=== PATIENT | female | born 1980 | race Caucasian/White ===

== ENCOUNTER 2017-05-23 11:18 | Emergency (ER) | payer OTHER ==
[2017-05-23 11:23] VITALS: BP 128/74; PULSE 69; RESP 16; TEMP 97.9; O2SAT 99
--- NOTE | 2017-05-23 11:58 | EDPHY ---
H & P Smoking Status: Former smoker HPI/ROS: Chief complaint: Sore throat History of present illness: This is a 36-year-old female who presents to the emergency department for evaluation of a sore throat. Patient reports the onset of symptoms over the last few days. She denies precipitating factors. She denies other associated signs or symptoms including no fevers, no swelling of the throat, no difficulty opening closing the mouth, swallowing, talking or breathing, no cough, no body aches, no rash. (Abdi Aceves) Physical Exam: General Appearance: Alert, nontoxic. Eyes: Pupils equal and round no injection. ENT: Tympanic membranes, external auditory canals, external ears and surrounding soft tissue including over the mastoids are unremarkable. Nasopharynx is not injected. There is no rhinorrhea. Oropharynx is mildly injected. There is no edema. There is no exudate. There is no asymmetry. The uvula is midline. No elevation of the tongue. There is no hoarseness, no drooling, no trismus, no stridor. Respiratory: Chest is non tender, lungs are clear to auscultation. Cardiac: regular rate and rhythm Musculoskeletal: Neck is supple and non tender. Extremities have full range of motion and are non tender. Skin: No rashes or lesions. (Abdi Aceves) Constitutional: Initial Vital Signs Temperature (C) 36.6 C 05/23/17 11:20 Heart Rate 69 05/23/17 11:20 Respiratory Rate 16 05/23/17 11:20 Blood Pressure 128/74 H 05/23/17 11:20 O2 Sat (%) 99 05/23/17 11:20 O2 Delivery Mode Room Air Allergies/Adverse Reactions: acetaminophen [From Percocet] Allergy (Verified 05/23/17 11:19) oxycodone HCl [From Percocet] Allergy (Verified 05/23/17 11:19) Home Medications: Medication Instructions Recorded NK [No Known Home Meds] 05/23/17 MDM/Departure - MDM ED Course/Re-evaluation: Patient seen under the supervision of my secondary supervising physician Dr. Marquita Mercado. Patient presents to the emergency department for sore throat. She is nontoxic. Strep swab is negative. No evidence of complications such as abscess formation or meningitis. Antibiotics not indicated. She is discharged home. Home care is discussed. Return precautions are given. Patient voiced understanding and agreement with plan. (Abdi Aceves) The patient was evaluated and managed by the physician executive administrative assistant. I have reviewed this chart and I agree with the findings and plan of care as documented , as indicated by my signature. I am the secondary supervising physician. ( Marquita Mercado) - Depart Disposition: Home, Routine, Self-Care Clinical Impression: Acute pharyngitis Qualifiers: Pharyngitis/tonsillitis etiology: unspecified etiology Qualified Code(s): J02.9 - Acute pharyngitis, unspecified Condition: Good Instructions: Pharyngitis (ED) Additional Instructions: Follow-up with a primary care doctor this week for recheck If symptoms worsen or new symptoms develop return to the emergency room for recheck Referrals: MASTER MELENDEZ [Primary Care Provider] - As per Instructions
== END 2017-05-23 12:09 | disposition home or self-care (01) ==
DX: J02.9 Acute pharyngitis, unspecified (principal); Z87.891 Personal history of nicotine dependence